=== PATIENT | male | born 1995 | race Two or more races ===

== ENCOUNTER 2024-05-22 07:20 | Emergency (ER) | payer MEDICAID ==
[~2024-05-22] VITALS: Ht 180.3 cm; Wt 99.0 kg
[2024-05-22] MEDS: ZIPRASIDONE MESYLATE 20MG/VIAL IM ONE (07:40)
[2024-05-22 08:40] VITALS: O2SAT 97
[2024-05-22 08:40] LABS: HEMATOCRIT. 40.8 % (42.0-52.0); HEMOGLOBIN. 13.4 g/dL (14.0-18.0); MEAN CORPUSCULAR HGB CONC 32.7 g/dL (31.0-37.0); MEAN CORPUSCULAR VOLUME 85.5 fL (80.0-94.0); MEAN PLATELET VOLUME 8.2 fl (7.4-10.4); PLATELET 285 x1000/uL (130-400); RED BLOOD CELL COUNT 4.77 mill/uL (4.7-6.1); RED CELL DISTRIBUTION WIDTH 15.1 % (11.6-14.6)
[2024-05-22 08:48] LABS: CHLORIDE 108 mEq/L (98-107); SODIUM 143 mEq/L (136-145)
[2024-05-22 08:49] LABS: CALCIUM 10.4 mg/dL (8.7-10.4); CARBON DIOXIDE 20 mEq/L (21-32)
[2024-05-22 08:50] LABS: DIFFERENTIAL COMMENT 1
[2024-05-22 08:54] LABS: CREATININE 1.6 mg/dL (0.6-1.3); GLUCOSE 62 mg/dL (70-105); UREA NITROGEN BLOOD 20 mg/dL (9-23)
[2024-05-22 08:56] LABS: ACETAMINOPHEN < 2 ug/mL (10-30)
[2024-05-22 09:00] LABS: ETHANOL BLOOD < 10 mg/dL (<10)
[2024-05-22 09:46] LABS: *AMPHETAMINES SCREEN URINE PRESUMPTIVE POSITIVE (NEGATIVE); *BARBITURATES SCREEN URINE NEGATIVE (NEGATIVE); *BENZODIAZEPINES SCREEN URINE NEGATIVE (NEGATIVE); *COCAINE SCREEN URINE NEGATIVE (NEGATIVE)
[2024-05-22 09:47] LABS: CANNABINOID URINE SCREEN NEGATIVE (NEGATIVE); ECSTASY MDMA SCREEN URINE CONF.TEST INDICATED (NEGATIVE); METHADONE URINE SCREEN NEGATIVE (NEGATIVE); OPIATES URINE SCREEN NEGATIVE (NEGATIVE); PHENCYCLIDINE URINE SCREEN NEGATIVE (NEGATIVE)
[2024-05-22 10:20] VITALS: BP 139/76; PULSE 86; RESP 18; O2SAT 97
[2024-05-22 10:44] LABS: PLATELET ESTIMATE NORMAL
[2024-05-22] MEDS ORDERED: CLIN-194 MT (12:36)
[2024-05-22] MEDS ORDERED: METR-167 MT (12:51)
[2024-05-22] MEDS: CEFTRIAXONE SODIUM 1G VIAL IM ONE (12:56)
== END 2024-05-22 13:47 | disposition home or self-care (01) ==
LOC: ER 07:20
DX: G92.9 Unspecified toxic encephalopathy (principal); D72.829 Elevated white blood cell count, unspecified; Z91.018 Allergy to other foods
CPT/HCPCS: 80305; 80048; 80307; 80329; 80320; 85025; 36415; 96372; 99291; J0696; J3486; Z7610; G0480